=== PATIENT | female | born 1930 | race Hispanic/Latino ===

== ENCOUNTER → 2018-05-27 | Outpatient (CLI) | payer MEDICARE, OTHER | END | disposition home or self-care (01) | LOC: RAH 11:58 | PROVIDERS: ATTEND Nurse Practitioner Adult Health | DX: I51.7 Cardiomegaly (principal) | CPT/HCPCS: 71046 ==

== ENCOUNTER → 2018-06-12 | Outpatient (CLI) | payer MEDICARE, OTHER | END | disposition home or self-care (01) | LOC: RAH 10:00 | PROVIDERS: ATTEND Nurse Practitioner Adult Health | DX: R06.02 Shortness of breath (principal); I70.0 Atherosclerosis of aorta; M85.88 Other specified disorders of bone density and structure, other site; M47.815 Spondylosis without myelopathy or radiculopathy, thoracolumbar region | CPT/HCPCS: 71046 ==

== ENCOUNTER → 2018-06-18 | Outpatient (CLI) | payer MEDICARE, OTHER | END | disposition home or self-care (01) | LOC: RAH 13:53 | PROVIDERS: ATTEND Nurse Practitioner Adult Health | DX: I31.3 Pericardial effusion (noninflammatory) (principal); J98.11 Atelectasis; I51.7 Cardiomegaly; J43.9 Emphysema, unspecified | CPT/HCPCS: 71250 ==